=== PATIENT | female | born 1935 | race Asian ===

== ENCOUNTER → 2018-06-09 | Outpatient (CLI) | payer MEDICARE, OTHER ==
[~2018-06-09] MED LIST: BENA40TA9 PO; CALC500T62 PO; FLUT44HFA IH; LEVO75TA10 PO; LORA10TA7 PO; OLME40TA8 PO; RALO60 PO; SIMV20TA6 PO
== END | disposition home or self-care (01) ==
LOC: RADPV 11:10
PROVIDERS: ATTEND Legal Medicine
DX: I65.23 Occlusion and stenosis of bilateral carotid arteries (principal); D12.2 Benign neoplasm of ascending colon
CPT/HCPCS: 93880

== ENCOUNTER → 2018-11-30 | Outpatient (CLI) | payer MEDICARE, OTHER | END | disposition home or self-care (01) | LOC: RADPV 10:01 | PROVIDERS: ATTEND Legal Medicine | DX: M17.12 Unilateral primary osteoarthritis, left knee (principal); M25.461 Effusion, right knee; M11.261 Other chondrocalcinosis, right knee ==

== ENCOUNTER → 2020-02-25 | Outpatient (CLI) | payer MEDICARE, OTHER ==
[~2020-02-25] MED LIST changes: +SIMV-43 PO; -SIMV20TA6 PO
== END | disposition home or self-care (01) ==
LOC: RADPV 10:16
PROVIDERS: ATTEND Legal Medicine
DX: M17.12 Unilateral primary osteoarthritis, left knee (principal); M76.9 Unspecified enthesopathy, lower limb, excluding foot; M25.462 Effusion, left knee; M11.262 Other chondrocalcinosis, left knee; M19.071 Primary osteoarthritis, right ankle and foot; M77.31 Calcaneal spur, right foot; M79.671 Pain in right foot; M25.562 Pain in left knee
CPT/HCPCS: 73562-TC; 73630-TC

== ENCOUNTER → 2021-02-13 | Outpatient (CLI) | payer MEDICARE, OTHER | END | disposition home or self-care (01) | LOC: RADMN 15:00 | PROVIDERS: ATTEND Legal Medicine | DX: I10 Essential (primary) hypertension (principal); I70.0 Atherosclerosis of aorta; I51.7 Cardiomegaly; R91.1 Solitary pulmonary nodule | CPT/HCPCS: 71046 ==

== ENCOUNTER → 2023-05-30 | Outpatient (CLI) | payer MEDICARE, OTHER ==
[~2023-05-30] MED LIST changes: -BENA40TA9 PO; +BENA40TA92 PO; +OLME40TA70 PO; -OLME40TA8 PO
== END | disposition home or self-care (01) ==
LOC: RADMN 13:21
PROVIDERS: ATTEND Internal Medicine Pulmonary Disease
DX: I70.0 Atherosclerosis of aorta (principal); J47.1 Bronchiectasis with (acute) exacerbation; J18.9 Pneumonia, unspecified organism
CPT/HCPCS: 71046